=== PATIENT | male | born 1955 | race Caucasian/White ===

== ENCOUNTER → 2017-01-11 | Outpatient (CLI) | payer BC ==
--- NOTE | 2017-01-12 08:32 | RAD ---
Indication bilateral knee pain. 2 standing AP views incorporating both knees were obtained as well as individual lateral views of both knees and, finally, a sunrise view again incorporating both knees. Bony mineralization appears normal. Significant joint space compartment narrowing involving either knee is not seen although there is mild patellofemoral narrowing bilaterally. Chondrocalcinosis is noted. IMPRESSION: Chondrocalcinosis. Mild bilateral patellofemoral narrowing
== END | disposition home or self-care (01) ==
LOC: DXRAD 08:57
PROVIDERS: ATTEND Orthopaedic Surgery
DX: M11.262 Other chondrocalcinosis, left knee (principal); M11.261 Other chondrocalcinosis, right knee
CPT/HCPCS: 73562